=== PATIENT | female | born 1940 | race Caucasian/White ===

== ENCOUNTER 2021-09-23 20:32 | Outpatient (CLI) | payer MEDICARE, BC, SELFPAY ==
--- NOTE | 2021-09-30 12:13 | P.SLS_ITS ---
Sleep Study Details Details Interpreting Provider: Eliud Ramos MD Date of Sleep Study: 09/23/21 Sleep Study Details: STUDY TYPE:? Hospital baseline study ? BMI:? 24.9 ORDERING PROVIDER:? Ana INDICATION:? Concerns about sleep apnea ? SLEEP SUMMARY:? Sleep time 388.5, efficiency 85.4, latency 10.5, REM latency 97, arousal index 14.5 RESPIRATORY SUMMARY:? Mean oxygen awake 96, asleep 95, low oxygen 88. 0.4 minutes oxygen between 80 and 88%. AHI 5.9, RDI 11, REM AHI 9.8. Supine AHI 17.3, supine REM AHI 42.4, Nonsupine AHI 0.9, nonsupine RDI 3.3 PERIODIC LIMB MOVEMENTS OF SLEEP:? Pretreatment 33.7, 0.9 associated with arousal Post treatment 0 CARDIAC:? Awake 57, asleep 54. No arrhythmia noted IMPRESSION:? Mild obstructive sleep apnea with significant supine position and R EM dependency. There was no significant apnea in the lateral position. RECOMMENDATION: AutoSet CPAP at a pressure of 4-17, or a dental appliance may be adequate treatment. Positional therapy could be considered as well.
--- NOTE | 2021-10-07 12:54 | W.PM.SLEEP ---
Sleep Study Details Details Interpreting Provider: Eliud Ramos MD Date of Sleep Study: 09/23/21 Sleep Study Details: STUDY TYPE:? Hospital ? BMI:? 24.9 ORDERING PROVIDER:? Ana INDICATION:? Atrial fibrillation, concerns about sleep apnea ? SLEEP SUMMARY:? Sleep time 388.5, efficiency 85.4, latency 10.5, REM latency 97, arousal index 14.5 RESPIRATORY SUMMARY:? Mean oxygen awake 96, asleep 95, minimum 88, 0.4 minutes oxygen between 80 and 88%. AHI 5.9, supine AHI 17.3, supine REM AHI 42.4. Overall RDI is 11 PERIODIC LIMB MOVEMENTS OF SLEEP:? Index 33.7, index with arousal 0.9 CARDIAC:? Awake 57, asleep 54, no arrhythmias noted. IMPRESSION:? Mild obstructive sleep apnea with supine position and REM dependency RECOMMENDATION: Would recommend trial of AutoSet CPAP pressure 4-17,. A dental appliance could also be considered.
== END 2021-09-23 20:33 | disposition home or self-care (01) ==
LOC: SLEEP 20:33
PROVIDERS: PCP Internal Medicine; Visit Provider Otolaryngology
DX: G47.33 Obstructive sleep apnea (adult) (pediatric) (principal)
CPT/HCPCS: 87635; 95810; A9270

== ENCOUNTER 2021-09-30 07:47 | Outpatient (CLI) | payer MEDICARE, BC, SELFPAY ==
--- NOTE | 2021-09-30 08:00 | CRLHL7_ITS ---
For Patients: As a result of the Century Cures Act, medical imaging exams and procedure reports are released immediately into your electronic medical record. You may view this report before your referring provider. If you have questions, please contact your health care provider. [facility] ??? [facility] MYOCARDIAL PERFUSION SCAN, 09/30/2021 CLINICAL HISTORY: 80-year-old female. Atrial fibrillation. Hypertension. Height 5 feet 2 inches, weight 139 pounds. TECHNIQUE: (Resting SPECT and stress gated SPECT with wall motion and ejection fraction) Stress: Pharmacologic ??? regadenoson (walking protocol, 0.4 mg IV) Dose (Stress/Rest): 32.6 mCi technetium-labeled sestamibi/8.44 mCi technetium-labeled sestamibi (IV) Comparison: None FINDINGS: There is good uptake of activity by the left ventricle. No left ventricular enlargement is noted. End-diastolic volume 42 mL. End-systolic volume 16 mL. There is soft tissue attenuation compatible with breast attenuation artifact. There is mild motion artifact on stress and rest images. There are no significant fixed or reversible defects identified. The gated images demonstrate a normal left ventricular ejection fraction of 62%. No regional wall motion abnormalities are identified. IMPRESSION: 1) No evidence of significant myocardial ischemia or infarction. 2) Normal left ventricular ejection fraction of 62%. This study was jointly reviewed by Radiology and Cardiology. VALENCIA MORALES M.D. Diagnostic/Nuclear Medicine Radiologist [email or web address] Transcribed: 3:08 p.mSteven ADAMS M.D. Department of Cardiology RD/Dictated by: Valencia Morales MD @ 09/30/2021 1:10:00 PM (Electronically Signed)
[2021-09-30] MEDS: SODIUM CHLORIDE 0.9 % (FLUSH) 10 ML SYRINGE IVF (09:27)
[2021-09-30] MEDS: REGADENOSON 0.4 MG/5 ML SYRINGE IVP (09:27)
[2021-09-30 09:28] VITALS: BP 155/75; PULSE 77; RESP 18
--- NOTE | 2021-09-30 17:07 | PM.ST ---
Stress Test Note Date Date Seen: 09/30/21 Date of test: 09/30/21 Providers Primary care provider: Gisela Cotto Stress test physician: Jin Cano Stress Test Note Stress test ordered: Lexiscan Indication for test: Atrial fibrillation with atypical chest pain Stress test medicine: Lexiscan Results discussion: Patient is a very nice 80-year-old female presents for the above test cardiac stress test medical history form is reviewed, she understands this and would like to proceed with the test. After discussion of the risks benefits. Pretest EKG shows normal sinus rhythm, mild bradycardia at [address] No acute ST wave changes are noted. Standard Lexiscan protocol is done for 5 minutes, no dysrhythmias are noted, there is no ST wave changes suggestive of ischemia, and she recovered well. Impression: Negative electrographic portion of Lexiscan Follow up suggested: Await nuclear images which will be read by Cardiology and nuclear Medicine, clinical correlation with this will be needed. Follow-up with primary care
== END 2021-09-30 07:48 | disposition home or self-care (01) ==
PROVIDERS: PCP Internal Medicine; Visit Provider Family Medicine
DX: I48.91 Unspecified atrial fibrillation (principal); I10 Essential (primary) hypertension
CPT/HCPCS: 78452; 93016; 93017; A9500; J2785

== ENCOUNTER 2022-06-29 07:57 | Outpatient (CLI) | payer MEDICARE, BC, SELFPAY | END 2022-06-29 07:58 | disposition home or self-care (01) | LOC: NFLDREF 06-30 08:34 | PROVIDERS: PCP Internal Medicine; Referring Provider Internal Medicine; Visit Provider Internal Medicine | DX: I10 Essential (primary) hypertension (principal); M85.80 Other specified disorders of bone density and structure, unspecified site | CPT/HCPCS: 80048; 82306 ==

== ENCOUNTER 2022-08-17 13:36 | Outpatient (CLI) | payer MEDICARE, BC, SELFPAY ==
--- NOTE | 2022-08-17 13:40 | CRLHL7_ITS ---
For Patients: As a result of the Century Cures Act, medical imaging exams and procedure reports are released immediately into your electronic medical record. You may view this report before your referring provider. If you have questions, please contact your health care provider. BILATERAL SCREENING MAMMOGRAM WITH COMPUTER-AIDED DETECTION AND TOMOSYNTHESIS TECHNIQUE: CC and MLO views were obtained. These mammographic images have been obtained using full-field digital technique. These mammographic images were interpreted with the benefit of computer-aided detection. Breast Tomosynthesis was used in this interpretation. COMPARISON FILM: 08/01/21, 07/31/20, 08/16/19. FINDINGS: The breasts are heterogeneously dense, which may obscure small masses IMPRESSION: There is no radiographic evidence for malignancy. ASSESSMENT: BI-RADS Category 2: Benign RECOMMENDATION: Routine screening mammogram in 1 year. A lay language report of this examination will be provided to the patient. Jaylon Rueda M.D. Diagnostic/Nuclear Medicine Radiologist [email or web address] ZOË/Dictated by: Jaylon Rueda MD @ 08/18/2022 8:12:00 AM (Electronically Signed)
== END 2022-08-17 13:37 | disposition home or self-care (01) ==
PROVIDERS: PCP Internal Medicine; Visit Provider Internal Medicine
DX: Z12.31 Encounter for screening mammogram for malignant neoplasm of breast (principal); R92.2 Inconclusive mammogram
CPT/HCPCS: 77063; 77067

== ENCOUNTER 2023-07-06 08:40 | Outpatient (CLI) | payer MEDICARE, BC, SELFPAY ==
--- OUTSIDE RECORDS SUMMARY | 2023-07-07 08:54 | XMS_ITS | Clinical Summary ---
Author Name Unknown Organization [facility] Address [place], [place] [address] Care Team Providers Care Billposter Name Role Phone Other-None Unavailable Unavailable Casie Benton MD Unavailable [phone] Gisela Cotto MD Primary Care Provider + [phone] Rika Addison Unavailable [phone] Allergies No known active allergies Medications Medication Sig Dispensed Refills Start Date End Date Status MULTIVITAMIN TAB take 1 tablet by oral route once daily with food 0 Active calcium carbonate-vitamin D3, 600 mg-125 unit, (CALCIUM 600 + D) tablet Take 1 tablet by mouth once daily. 0 06/16/2011 Active amLODIPine (NORVASC) 5 mg tabletIndications:HTN (hypertension) Take 1 Tablet (5 mg) by mouth once daily. 90 Tablet 3 10/23/2022 Active apixaban (ELIQUIS) 2.5 mg tabletIndications:Paro xysmal atrial fibrillation (HC) Take 1 Tablet (2.5 mg) by mouth two times daily. 180 Tablet 3 10/23/2022 Active flecainide (TAMBOCOR) 50 mg tabletIndications:PAF (paroxysmal atrial fibrillation) (HC) TAKE 1 TABLET(50 MG) BY MOUTH EVERY 12 HOURS 180 Tablet 3 02/15/2023 Active Active Problems Problem Noted Date Diagnosed Date Adenomatous colon polyp 11/08/2013 Overview: Colonoscopy 10/2013 polyp repeat in 5 years Family history of malignant neoplasm of gastrointestinal tract 09/07/2008 Overview: Colonoscopy 08/2008 normal repeat in 5 years Sensorineural hearing loss, bilateral 07/07/2007 Personal history of malignant neoplasm of breast 03/01/2000 Overview: Lumpectomy and radiation, est. receptor positive OSTEOPENIA Overview: Last Dexa 06/03: L-spine -0.5, Hip -0.5, improved from 04/03 Unspecified essential hypertension Resolved Problems Problem Noted Date Diagnosed Date Resolved Date Unspecified essential hypertension 07/05/2007 07/22/2007 Immunizations Name Administration Dates Next Due AMB Influenza, IIV3 (Age >=3 years)(Flu Clinic Only) 01/07/2011,12/04/2008,01/09/2008 Influenza A (H1N1), Inactiva benita (Age >=3 Years) 03/20/2009 Influenza, IIV3 (Age >=3 years) 11/15/2009 Pneumococcal Poly,23-Valent (Pneumovax) 05/17/19 08 Td (Age >=7 Years) 06/05/2002 Tdap 07/04/2010 Zoster (Zostavax-ZVL, live) 05/17/2007 Family History Medical History Relation Name Comments Good Health Brother Other Father age 33, [address] owning accident Cancer-colon Mother Age 50 Cancer-breast Neg. Diabetes Other grandparents Relation Name Status Comments Brother Father Mother Neg. Other Social History Tobacco Use Types Packs/Day Years Used Date Smoking Tobacco: Never Smokeless Tobacco: Never Alcohol Use Standard Drinks/Week Comments Not Currently 0 (1 standard drink = 0.6 oz pur e alcohol) Social Connections Answer Date Recorded Frequency of Communication with Friends and Fami ly Not on file 09/12/2021 Sex and Gender Information Value Date Recorded Sex Assigned at Not on file Gender Identity Not on file Sexual Orientation Not on file Obstetrics History Para Term AB IAB SAB Ectopic Multiple Livin g Live Births 3 2 1 1 2 Date Outcome GA Total Labor Labor/2nd/3rd Weight Sex Delivery Anes PTL Tara A1 A5 Name Cl in SAB Para Para Last Filed Vital Signs Vital Sign Reading Time Taken Comments Blood Pressure 137/68 10/23/2022 1:52 PM CDT Pulse 55 10/23/2022 1:52 PM CDT Temperature - - Respiratory Rate 14 11/28/2021 12:1 6 PM CDT Oxygen Saturation 99% 10/23/2022 1:52 PM CDT Inhaled Oxygen Concentration - - Weight 60.7 kg (133 lb 14.4 oz) 10/23/2022 1:52 PM CDT Height 157.5 cm (5' 2.01) 10/23/2022 1:52 PM CD T Body Mass Index 24.48 10/23/2022 1:52 PM CDT Plan of Treatment Health Maintenance Due Date Last Done Comments Depression screening for age 12+ 1952 Zoster (shingles) series for age 50+ (2 of 3) 07/12/2007 05/17/2007 Pneumococcal series for age 65+ (2 of 2 - PCV) 05/16/2008 05/17/2007 Medicare Wellness for age 65+ 06/16/2012 06/16/2011 Tetanus booster 07/04/2020 07/04/2010, 06/05/2002 COVID-19 vaccine series () 10/30/2022 07/10/2022, 11/24/2021, 07/11/2021, Additional history exists BMI (ht and wt on same day) for age 18+ 10/24/2023 10/23/2022, 05/22/2022, 10/20/2021 Influenza for age 65+ 10/31/2023 01/07/2011 , 11/15/2009, 03/20/2009, Additional history exists Tdap Completed 07/04/2010 DEXA/DXA scan for age 65+ Completed 2011, 06/18/2009, 05/26/2007 Procedures Procedure Name Priority Date/Time Associated Diagnosis Comments XR DXA BONE DENSITY 2 SITES AXIAL Routine 06/23/2011 2:28 PM CDT Osteopenia from Last 3 Months or Most Recently Relevant to Health Maintenance Results * XR DEXA BONE DENSITY 2 SITES (06/23/2011 2:28 PM CDT) Anatomical Region Laterality Modality Spine, HIPS, HIPL, HIPR Other Narrative 07/01/2011 11:26 AM CDT Please see scanned document for results of this study. Procedure Note Florence Bocanegra PA - 07/01/2011 Please see scanned document for results of this study. 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 06/16/11 Casie Benton MD [address] [facility] [address] [place] [address] Ophthalmology Surgery 06/16/11 Rika Addison AuD [address] [place] [address] Provider Audiology 06/09/07
== END 2023-07-06 08:41 | disposition home or self-care (01) ==
LOC: NFLDREF 07-07 08:50
PROVIDERS: PCP Internal Medicine; Referring Provider Internal Medicine; Visit Provider Internal Medicine
DX: I48.0 Paroxysmal atrial fibrillation (principal); M85.80 Other specified disorders of bone density and structure, unspecified site; Z13.220 Encounter for screening for lipoid disorders
CPT/HCPCS: 80061; 82306

== ENCOUNTER 2023-08-12 09:07 | Outpatient (CLI) | payer MEDICARE, BC, SELFPAY ==
--- NOTE | 2023-08-12 09:15 | CRLHL7_ITS ---
For Patients: As a result of the Century Cures Act, medical imaging exams and procedure reports are released immediately into your electronic medical record. You may view this report before your referring provider. If you have questions, please contact your health care provider. BILATERAL SCREENING MAMMOGRAM WITH COMPUTER-AIDED DETECTION AND TOMOSYNTHESIS TECHNIQUE: CC and MLO views were obtained. These mammographic images have been obtained using full-field digital technique. These mammographic images were interpreted with the benefit of computer-aided detection. Breast Tomosynthesis was used in this interpretation. COMPARISON FILM: 08/17/22, 08/01/21, 07/31/20. FINDINGS: There are scattered areas of fibroglandular density. IMPRESSION: There is no radiographic evidence for malignancy. ASSESSMENT: BI-RADS Category 2: Benign RECOMMENDATION: Routine screening mammogram in 1 year. A lay language report of this examination will be provided to the patient. Roe Luz M.D. Diagnostic Radiologist [email or web address] SP/Dictated by: Roe Luz MD @ 08/16/2023 11:09:00 AM (Electronically Signed)
--- OUTSIDE RECORDS SUMMARY | 2023-08-12 09:15 | XMS_ITS | Clinical Summary ---
Author Organization [facility] Address [place], [place] [address] Care Team Providers Care Controller Instructor Name Role Phone Other-None Unavailable Unavailable Casie Benton MD Unavailable [phone] Gisela Cotto MD Primary Care Provider + [phone] Rika Addison Unavailable [phone] Allergies No known active allergies Medications Medication [...] Outcome GA Total Labor Labor/2nd/3rd Weight Sex Type Anes PTL Tara A1 A5 Name Clin SAB Para Para Last Filed Vital Signs [...] 10/23/2022 1:52 PM CDT Plan of Treatment Upcoming Encounters Date Type Department Care Team (Late st Contact Info) Description 08/31/2023 11:30 AM CDT Office Visit [facility] [address] [place] [address] Roe Mireles MD [address] [facility] [address] [place], [place] [id number] Health Maintenance Due Date Last Done Comments Depression screening for age 12+ 1952 Zoster (shingles) series for age 50+ (2 of 3) 07/12/2007 05/17/2007 Pneumococcal series for age 65+ (2 of 2 - PCV) 05/16/2008 05/17/2007 Medicare Wellness for age 65+ 06/16/2012 06/16/2011 Tetanus booster 07/04/2020 07/04/2010, 06/05/2002 COVID-19 vaccine series ( season) 2022 07/10/2022, 11/24/2021, 07/11/2021, Additional history exists BMI [...] document for results of this study. 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 06/16/11 Casie Benton MD [address] [address] Ophthalmology Surgery 06/16/11 Rika Addison AuD [address] [place] [address] Provider Audiology 06/09/07
== END 2023-08-12 09:08 | disposition home or self-care (01) ==
LOC: MAMMO 09:07
PROVIDERS: PCP Internal Medicine; Visit Provider Internal Medicine
DX: Z12.31 Encounter for screening mammogram for malignant neoplasm of breast (principal)
CPT/HCPCS: 77063; 77067

== ENCOUNTER 2023-08-17 13:00 | Outpatient (RCR) | payer MEDICARE, BC, SELFPAY ==
--- NOTE | 2023-07-28 12:37 | PT.OPEX ---
PT [place] Outpatient Eval PT [facility] Outpatient Eval Start: 07/28/23 08:02 Freq: Status: Active Protocol: Document 07/28/23 08:03 MARCIO (Rec: 07/28/23 10:19 MARCIO [id number]) E-signed By Belkis Ballesteros, PT Physical Therapy Outpatient Evaluation Insurance Information Recert Due Date 10/26/23 Insurance Name Medicare B,Blue Cross/Blue Shield Medical Diagnosis Female urinary incontinence, pelvic pain Referring Gisela Arriaga Subjective Subjective She leaks small amount of urine when getting up from couch after prolonged reading. She gets occasional leakage with getting up out of bed. She has insomnia- either difficult to get to sleep or has a wake window in the night . If she is able to get into a deep sleep, she is able to go over 6 hours without voiding in the night. She exercises in the day to assist with fatiguing body. Sometimes drinks warm milk to assist with falling asleep. Awhile ago had some fecal leakage c delaying defecation. This was with loose stools- correlates with diet. She had a small amount of stool in underpants. Has urinary leakage with climax, has not tolerated vaginal penetration for 6-7 years d/t pain. 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 HRT ended p lumpectomy. Breast CA in 2000. Mother had colon CA. Hs tightness bilat Breathing: chest/neck breathing Pressure management: [place]: mild separation TA strength: fair, RA preference LUMBAR ROM Flexion: limited 50% repeated flexion: no pain Extension: limited 25% repeated ext: no pain Right Sidebend: not limited Left Sidebend: not limited LE MMT Hip Extension: R 4-/5 L 4-/5 Hip abduction: R 4/5 L 4/5 JOINT MOBILITY/PALPATION SPECIAL TESTS Straight leg raise: neg Crossed straight leg raise: + sciatic tension Slump test: + bilat Quadrant test: neg SI/HIP tests AYANNA + bilat at lateral hip FADIR - B SCOUR - B Gillet Test: - Standing forward bend Test: - B Functional Test Performed & Score PMH: breast cancer c lumpectomy, A-fib, depression Assessment Assessment/Impression Pt is an 82 yr old female c a h/o intermittent fecal and urinary incontinence. She also reports tension in pelvic floor that results in leakage with climaxing. She has lessened energy in past 2 years and reports fatigue much more limiting than prior as well as insomnia- which results in more frequent nocturia. She is active and motivated. She does have hypertonicity of adductors, which can have carryover into Pelvic floor mm tension. She does have somes s/s of pelvic floor hypertonicity. Primary Functional Limitations occassional bladder and fecal leakage, quick fatigue. Plan of Care Rehabilitation Potential Good Physical Therapy Goals Pt will report improved bladder continence c 50% reduction in leaks in 12 weeks . Pt will demonstrate indep in HEP to progress gains made in therapy in 8 weeks. Pt will be indep c diaphragmatic breathing to improve flexibility of pelvic floor, improve rest for sleep, and improve deep core connection in 4 weeks. Coordination/Communication With Referral Source Treatment Plan/Direct Interventions Manual Therapy,Neuromuscular Re-ed,Self-Care/Home Management,Therapeutic Activities,Therapeutic Exercises Frequency/Duration weekly for 12 weeks. Patient Will Be Discharged From Therapy Completion of LTG(s),Skills Plateau,Independent w/HEP, Independently Progressing Evaluation Billing Untimed Code Treatment Minutes 45 PT Eval No Charge No Complexity Low Certification Information Initial Certification Date 07/28/23 Ending Certification Date 10/26/23 Physician Comment/Change : Physician NPI Number #
== END 2023-09-27 13:13 | disposition home or self-care (01) ==
PROVIDERS: PCP Internal Medicine; Visit Provider Internal Medicine
DX: N39.3 Stress incontinence (female) (male) (principal); R10.2 Pelvic and perineal pain; Z51.89 Encounter for other specified aftercare
CPT/HCPCS: 97110; 97140; 97161

== ENCOUNTER 2024-01-08 16:17 | Emergency (ER) | payer MEDICARE, BC, SELFPAY ==
[2024-01-08] VITALS (9 sets, daily range): BP systolic 120–150; BP diastolic 65–78; PULSE 40–68; RESP 18; TEMP 36.8; O2SAT 86–100; BMI 26.1
--- NOTE | 2024-01-08 17:15 | CRLHL7_ITS ---
For Patients: As a result of the Cures Act, medical imaging exams and procedure reports are released immediately into your electronic medical record. You may view this report before your referring provider. If you have questions, please contact your health care provider. INDICATION: : Shortness of breath COMPARISON: Chest radiograph on August 13, 2021 TECHNIQUE: Two view(s) of the chest FINDINGS: The cardiomediastinal silhouette and pulmonary vasculature are unremarkable. There is no focal airspace consolidation, pleural effusion, or pneumothorax. No displaced fractures. IMPRESSION: No acute cardiopulmonary process. Dictated by William Flores MD @ 01/08/2024 5:45:37 PM (Electronically Signed)
--- OUTSIDE RECORDS SUMMARY | 2024-01-08 17:22 | XMS_ITS | Clinical Summary ---
Author Organization [facility] Address [place], [place] [address] Care Team Providers Care Hooker Off Name Role Phone Other-None Unavailable Unavailable Casie Benton MD Unavailable [phone] Gisela Cotto MD Primary Care Provider [phone] Rika Kang Angie Unavailable [phone] Allergies No known active allergies Medications Medication Sig Dispensed Refills Start Date End Date Status MULTIVITAMIN TAB take 1 tablet by oral route once daily with food 0 Active calcium carbonate-vitamin D3, 600 mg-125 unit, (CALCIUM 600 + D) tablet Take 1 tablet by mouth once daily. 0 06/16/2011 Active flecainide (TAMBOCOR) 50 mg tabletIndications:PAF (paroxysmal atrial fibrillation) (HC) Take 1 Tablet (50 mg) by mouth every 12 hours. 180 Tablet 3 08/31/2023 Active apixaban (ELIQUIS) 2.5 mg tabletIndications:Paro xysmal atrial fibrillation (HC) Take 1 Tablet (2.5 mg) by mouth two times daily. 180 Tablet 3 08/31/2023 Active amLODIPine (NORVASC) 5 mg tabletIndications:HTN (hypertension) Take 1 Tablet (5 mg) by mouth once daily. 90 Tablet 3 08/31/2023 Active Active Problems Problem Noted Date Diagnosed Date Adenomatous colon polyp 11/08/2013 Overview (11/08/2013): Colonoscopy 10/2013 polyp repeat in 5 years Family history of malignant neoplasm of gastrointestinal tract 09/07/2008 Overview (09/07/2008): Colonoscopy 08/2008 normal repeat in 5 years Sensorineural hearing loss, bilateral 07/07/2007 Personal history of malignant neoplasm of breast 03/01/2000 Overview (06/29/2006): Lumpectomy and radiation, est. receptor positive OSTEOPENIA Overview (06/29/2006): Last Dexa 06/03: L-spine -0.5, Hip -0.5, improved from 04/03 Unspecified essential hypertension Resolved Problems Problem Noted Date Diagnosed Date Resolved Date Unspecified essential hypertension 07/05/2007 07/22/2007 Encounters Date Type Department Care Team Description 11/15/2023 Refill [facility] [address] [place] [address] Roe Mireles MD Refill Request (Eliquis) from Last 3 Months Immunizations Name Administration Dates Next Due AMB [...] Date Smoking Tobacco: Never Smokeless Tobacco: Never Tobacco Cessation:Counseling Given: Yes Alcohol Use Standard Drinks/Week Comments Not Currently [...] Sign Reading Time Taken Comments Blood Pressure 150/69 08/31/2023 11:27 AM CDT Pulse 52 08/31/2023 11:27 AM CDT Temperature - - Respiratory Rate 14 11/28/2021 12:16 PM CDT Oxygen Saturation 99% 08/31/2023 11:27 AM CDT Inhaled Oxygen Concentration - - Weight 62.1 kg (137 lb) 08/31/2023 11:27 AM CDT Height 157.5 cm (5' 2.01) 10/23/2022 1:52 PM CD T Body Mass Index 25.05 10/23/2022 1:52 PM CDT Plan of Treatment Health Maintenance Due Date Last Done Comments Depression screening for age 12+ 1952 Zoster (shingles) series for age 50+ (2 of 3) 07/12/2007 05/17/2007 Pneumococcal series for age 65+ (2 of 2 - PCV) 05/16/2008 05/17/2007 Medicare Wellness for age 65+ 06/16/2012 06/16/2011 RSV vaccine for adults or (1 - 1-dose 75+ series) 2016 Tetanus booster 07/04/2020 07/04/2010, 06/05/2002 BMI (ht and wt on same day) for age 18+ 10/24/2023 10/23/2022, 05/22/2022, 10/20/2021 COVID-19 vaccine series ( season) 2023 12/03/2022, 07/10/2022, 11/24/2021, Additional history exists Influenza for age 65+ 10/31/2023 01/07/2011 , [...] Documents on File Type Date Recorded Patient Residency Director Expl anation Healthcare Directive 03/17/2007 HEALTH CARE DIRECTIVE/[employer], [facility], 03/17/07 Care Teams Hooker Off Relationship Specialty Start Date End Date Gisela Cotto MD [address] [place] [address] PCP - General Internal Medicine 12/22/11 Other-None . 06/16/11 Casie Benton MD [address] [address] Ophthalmology Surgery 06/16/11 Rika Kang AuD [address] [place] [address] Provider Audiology 06/09/07
[2024-01-08 17:29] LABS: Hematocrit 38.9 % (33.0-51.0); Hemoglobin* 12.6 gm/dL (12.0-16.0); Lymphocytes Percent Auto 22.3 % (20-44); Mean Corpuscular HGB Conc 32 gm/dL (32-36); Mean Corpuscular Hemoglobin 27 pg (26-34); Mean Corpuscular Volume 84 fL (80-100); Monocytes Percent Auto 13.1 % (0.0-11.0); Neutrophils Percent Auto 62.4 % (42.0-72.0); Platelet Count* 173 K/uL (140-440); RDW Coefficient of Variation % 14.7 % (11.5-15.5); Red Blood Count 4.63 m/uL (4.00-5.20); White Blood Count* 5.48 K/uL (4.50-11.00)
[2024-01-08 17:30] LABS: Basophils Absolute Auto 0.01 K/uL (0.00-0.30); Basophils Percent Auto 0.2 % (0.0-3.0); Eosinophils Percent Auto 1.8 % (0.0-7.0); Immature Granulocytes Abs Auto 0.01 K/uL (0.00-0.30); Immature Granulocytes Pct Auto 0.2 %; Lymphocytes Absolute Auto 1.22 K/uL (0.90-2.90); Neutrophils Absolute Auto 3.42 K/uL (1.7-7.0)
[2024-01-08 17:31] LABS: Lactate* 1.5 mmol/L (0.5-1.9)
[2024-01-08 17:35] LABS: Slide Review Reflex No
[2024-01-08 17:47] LABS: Mono Screen* Negative (Negative)
--- NOTE | 2024-01-08 17:58 | ED_ITS ---
HPI - General Adult General Chief complaint: Unspecified Complaint, Adult Stated complaint: High BP Time Seen by Provider: 01/08/24 17:02 Source: patient Mode of arrival: ambulatory Limitations: no limitations History of Present Illness HPI narrative: 83-year-old female coming in today complaining of not feeling well. She states she woke up this morning around 7:00 a.m. and did not feel well she states that her head was ?swimming?. She states that the room was moving spinning around her. She felt clammy when this was occurring. She denies feeling short of breath or chest pain. She did not have a headache. She denies any blurry vision ringing in her ears. She states that she laid back down for a while and started to feel better. She then got up and had her friend check her blood pressure and it was ?99: She subsequently had a large bowel movement in all of her symptoms resolved. She was in [place] this morning when this occurred. She decided that she was feeling good enough to come home. So they went to the [facility] in waited further over. She was able to get around the airport. She states that now she feels very tired and she feels a heaviness from the waist up. She denies any focal neurologic deficits. She denies any weakness of any extremity, clumsiness, changes in her speech, confusion or headache. She states that she is getting checked out because a friend who is a medical professional asked her to. She denies any nausea or vomiting. It has been approximately 11 hours since the episode occurred. Patient has history of paroxysmal atrial fibrillation. She is on Eliquis, flecainide and amlodipine. Takes her medications as prescribed. Related Data Home Medications ?Medication ?Instructions ?Recorded ?Confirmed calcium 600 mg (as 1 tab PO DAILY 09/12/21 07/12/23 carbonate)-vitamin D3 5 mcg (200 unit) tablet multivitamin (Multiple Vitamins 1 tab PO QDAY 09/12/21 07/12/23 tablet) metoprolol tartrate 25 mg tablet 25 mg PO QDAY PRN 11/07/21 07/12/23 amlodipine 5 mg tablet 5 mg PO QDAY 11/25/21 07/12/23 flecainide 50 mg tablet 50 mg PO Q12H 07/09/22 07/12/23 apixaban 2.5 mg tablet (Eliquis) 2.5 mg PO BID 11/09/22 07/12/23 Allergies Allergy/AdvReac Type Severity Reaction Status Date / Time No Known Allergies Allergy Verified 07/12/23 12:45 Review of Systems Status of ROS: Reports: 10 or more systems reviewed and unremarkable except as noted in History and below PFSH PFSH Surgical History History of cataract surgery ?Z98.49 - Cataract extraction status, unspecified eye (ICD-10) History of tubal ligation (12/02/11) ?Z98.51 - Tubal ligation status (ICD-10) Family History Mother Colon cancer, Onset Age: 50 Social History Narrative: health care directive on file- Health care directive completed on 06/09/2019 reviewed and sent to be scanned on 06/29/2019 What is your current living situation?: I presently have a place to live Problems where you live: no known problems In the past 12 months, utilities in danger of being shut off: no In past 12 months, lack of transportation kept you from medical appts, meetings, work, or getting things needed for daily living: no In the past 12 mos, have been you worried that your food would run out before you had money to buy more?: never true In the past 12 mos, the food you bought just didn't last and you didn't have money to buy more?: never true Smoking Status: Never smoker How often does anyone, including family, friends and others, physically hurt you : never How often does anyone, including family, friends and others, insult or talk down to you: never How often does anyone, including family, friends and others, threaten you with harm: never How often does anyone, including family, friends and others, scream or curse at you: never Little interest or pleasure in doing things: not at all Feeling down, depressed, or hopeless: not at all Exam Narrative: Exam Narrative: Well-nourished well-developed patient in no acute distress. Alert and oriented. Answers questions appropriately. Mood and affect are appropriate. Thoughts are goal oriented and rational. No tangential or magical thinking noted. Patient speaks in full sentences without needing to catch her breath. HEENT: Normocephalic atraumatic. Pupils are equally round reactive to light. Extraocular muscles are intact. Conjunctivae are moist without any icterus noted. Moist mucous membranes. Posterior pharynx is normal. Neck is soft without any lymphadenopathy or thyromegaly. No masses are appreciated. Cardiovascular: Heart is bradycardic and regular rhythm S1 and S2 are present without any murmurs. Lungs: Clear to auscultation bilaterally no wheezes rhonchi or rales are appreciated. Patient takes deep breaths without any discomfort. Abdomen: Soft and nontender nondistended with normal bowel sounds. No guarding or rebound. Extremities: Bilateral lower extremities are without edema. Skin: Well perfused without any obvious rashes. Strength is 5/5 of the upper and lower extremities. Reflexes are 2+ and symmetric at the knees. Cranial nerves 3-12 are normal. Illtkp-yd-rraj is normal. Elcu-sc-ophc is normal. There is no nystagmus either horizontally or vertically. Gait is normal. Const: Vital Signs, click to edit/add: Vital Signs - 24 hr 01/08/24 16:28 Temperature 98.2 F Pulse Rate [Pulse Oximeter] 68 Respiratory Rate 18 Blood Pressure [Le ft Upper Arm] 150/65 H Pulse Oximetry 98 Oxygen Delivery Me thod Room Air Course Course ED Course: EKG, read by me, shows sinus bradycardia with a pulse of 51. CBC is unremarkable. Normal lactate. Triple swab is negative. Chemistries are unremarkable, BUN is slightly elevated at 37. Normal LFTs. Normal troponin. Normal CRP. UA does show 1+ leukocyte esterase and 5-10 wbc's. Patient is not having any obvious UTI symptoms. Because of this we will wait for cultures and if the cult ures are positive I do recommend treatment with antibiotics. Vital Signs Vital signs: Initial Vital Signs Temperature 98.2 F 01/08/24 16:28 Temperature Source Temporal Artery Scan 01/08/24 16:28 Pulse Rate 68 01/08/24 16:28 Pulse Rhythm Regular 01/08/24 16:28 Respiratory Rate 18 01/08/24 16:28 Blood Pressure 150/65 H 01/08/24 16: Blood Pressure Mean 93 01/08/24 16:28 Blood Pressure Position Sitting 01/08/24 16:28 Pulse Oximetry 98 01/08/24 16:28 Oxygen Delivery Method Room Air 01/08/24 16:28 Vital Signs Temperature 98.2 F 01/08/24 16:28 Pulse Rate 68 01/08/24 16:28 Respiratory Rate 18 01/08/24 16:28 Blood Pressure 150/65 H 01/08/24 16:28 Pulse Oximetry 98 01/08/24 16:28 Oxygen Delivery Method Room Air 01/08/24 16:28 Temperature 98.2 F 01/08/24 16:28 Pulse Rate 68 01/08/24 16:28 Respiratory Rate 18 01/08/24 16:28 Blood Pressure 150/65 H 01/08/24 16:28 Pulse Oximetry 98 01/08/24 16:28 Oxygen Delivery Method Room Air 01/08/24 16:28 Medical Decision Making MDM Narrative Medical decision making narrative: 83-year-old female with an episode of dizziness and low blood pressure this morning, now resolved. No evidence of stroke-like symptoms or acute coronary syndrome. Recommend hydration, rest and follow-up as needed. Return to ER if symptoms return. Lab Data Lab results reviewed: Yes I reviewed the patient's lab results Labs: Lab Results 01/08/24 01/08/24 01/08/24 Range/Units 17:20 17:23 18:40 WBC 5.48 (4.50-11.00) K/uL RBC 4.63 (4.00-5.20) m/uL Hgb 12.6 (12.0-16.0) gm/dL Hct 38.9 (33.0-51.0) % MCV 84 (80-100) fL MCH 27 (26-34) pg MCHC 32 (32-36) gm/dL RDW Coeff of Miguel 14.7 (11.5-15.5) % Plt Count 173 (140-440) K/uL Neut % (Auto) 62.4 (42.0-72.0) % Lymph % (Auto) 22.3 (20-44) % [place] % (Auto) 13.1 H (0.0-11.0) % Eos % (Auto) 1.8 (0.0-7.0) % Baso % (Auto) 0.2 (0.0-3.0) % Neut # (Auto) 3.42 (1.7-7.0) K/uL Lymph # (Auto) 1.22 (0.90-2.90) K/uL [place] # (Auto) 0.70 (0.00-0.90) K/UL Eos # (Auto) 0.10 (0.00-0.50) K/uL Baso # (Auto) 0.01 (0.00-0.30) K/uL Abs Immat Gran (auto) 0.01 (0.00-0.30) K/uL Imm/Tot Granulo (auto) 0.2 % Sodium 137 (135-149) mmol/L Potassium 4.2 (3.6-5.1) mmol/L Chloride 101 (96-114) mmol/L Carbon Dioxide 28 (20-32) mmol/L Anion Gap 8 (7-15) mEq/L BUN 37 H (7-30) mg/dL Creatinine 0.8 (0.5-1.5) mg/dL Estimated Creat Clear 32.73 Estimated GFR 74 ml/min Glucose 107 (60-115) mg/dL Lactate 1.5 (0.5-1.9) mmol/L Calcium 9.2 (8.4-10.6) mg/dL Total Bilirubin 0.2 (0.1-1.5) mg/dL Direct Bilirubin 0.1 (0.0-0.5) mg/dL AST 22 (12-35) U/L ALT 18 (4-35) U/L Alkaline Phosphatase 89 (40-150) U/L Troponin I < 0.01 L (0.01-0.04) ng/mL C-Reactive Protein < 0.5 L (0.5-1.0) mg/dL Total Protein 6.8 (6.0-8.3) g/dL Albumin 4.2 (3.3-5.0) g/dL Urine Color Yellow (Yellow) Urine Appearance Clear (Clear) Urine pH 6.0 (5.0-8.5) Ur Specific [place] 1.025 (1.000-1.030) Urine Protein Trace A (Negative) Urine Glucose (UA) Negative (Negative) Urine Ketones Negative (Negative) Urine Blood Negative (Negative) Urine Nitrite Negative (Negative) Urine Bilirubin Negative (Negative) Urine Urobilinogen 0.2 (0.2-1.0) Ur Leukocyte Esterase 1+ A (Negative) Urine RBC 0-2 (0-2) Urine WBC 5-10 A (0-5) Ur Squamous Epith Cells Few (None-Few) Amorphous Sediment Few A (None) Urine Bacteria Moderate A (None) Urine Mucus Few A (None) SARS-CoV-2 (PCR) Negative SARS-CoV-2 (Negative) Monoscreen Negative (Negative) Influenza Type A (PCR) Negative PCR FLU A (Negative) Influenza Type B (PCR) Negative PCR FLU B (Negative) RSV (PCR) Negative PCR RSV (Negative) Imaging Data Chest x-ray: Attestation: I have reviewed the pertinent imaging results. Radiologist's impression: Two view(s) of the chest FINDINGS: The cardiomediastinal silhouette and pulmonary vasculature are unremarkable. There is no focal airspace consolidation, pleural effusion, or pneumothorax. No displaced fractures. IMPRESSION: No acute cardiopulmonary process. ECG Data Attestation: I personally reviewed and interpreted this ECG as follows: Discharge Plan Discharge Clinical Impression: Dizziness, Low blood pressure reading Additional Instructions: Stay well hydrated, get plenty of rest. If symptoms return return to the ER. Otherwise, you can follow up with your primary care provider this coming week. Prescriptions: No Action amlodipine 5 mg tablet 5 mg PO QDAY calcium carbonate-vitamin D3 600 mg-5 mcg (200 unit) tablet 1 tab PO DAILY multivitamin [Multiple Vitamins] Tablet 1 tab PO QDAY metoprolol tartrate 25 mg tablet 25 mg PO QDAY PRN flecainide 50 mg tablet 50 mg PO Q12H Eliquis 2.5 mg tablet 2.5 mg PO BID Follow Up/Referrals: Gisela Cotto MD [Primary Care Provider] - Stand Alone Forms: [employer] Info Instructions
[2024-01-08 18:16] LABS: Albumin* 4.2 g/dL (3.3-5.0); Chloride* 101 mmol/L (96-114); Sodium* 137 mmol/L (135-149)
[2024-01-08 18:17] LABS: Potassium* 4.2 mmol/L (3.6-5.1)
[2024-01-08 18:18] LABS: Creatinine* 0.8 mg/dL (0.5-1.5); Est. Creatinine Clearance* 32.73; Estimated Glomerular Filt Rate 74 ml/min
[2024-01-08 18:19] LABS: Alkaline Phosphatase* 89 U/L (40-150); Anion Gap 8 mEq/L (7-15); Aspartate Amino Transferase* 22 U/L (12-35); Bilirubin Direct* 0.1 mg/dL (0.0-0.5); Bilirubin Total* 0.2 mg/dL (0.1-1.5); Carbon Dioxide* 28 mmol/L (20-32); Total Protein* 6.8 g/dL (6.0-8.3)
[2024-01-08 18:20] LABS: Alanine Aminotransferase* 18 U/L (4-35); Blood Urea Nitrogen* 37 mg/dL (7-30); Calcium* 9.2 mg/dL (8.4-10.6); Glucose* 107 mg/dL (60-115)
[2024-01-08 18:28] LABS: PCR FLU A Negative PCR FLU A (Negative); PCR FLU B Negative PCR FLU B (Negative); PCR RSV Negative PCR RSV (Negative); SARS PCR* Negative SARS-CoV-2 (Negative)
[2024-01-08 18:38] LABS: C Reactive Protein* < 0.5 mg/dL (0.5-1.0); Troponin I* < 0.01 ng/mL (0.01-0.04)
[2024-01-08 18:54] LABS: Appearance Urine Clear (Clear); Bilirubin Urine Negative (Negative); Blood Urine Negative (Negative); Color Urine Yellow (Yellow); Glucose Urine Negative (Negative); Ketones Urine Negative (Negative); Leukocyte Esterase Urine 1+ (Negative); Nitrite Urine Negative (Negative); Protein Urine Trace (Negative); Specific Gravity Urine 1.025 (1.000-1.030); Urobilinogen Urine 0.2 (0.2-1.0)
[2024-01-08 19:14] LABS: Amorphous Sediment Urine Few; Bacteria Urine Moderate; Mucus Urine Few; RBC Urine 0-2 (0-2); Squamous Epithelial Cell Urine Few (None-Few)
== END 2024-01-08 19:36 | disposition home or self-care (01) ==
PROVIDERS: Emergency Provider Family Medicine; PCP Internal Medicine
DX: R42 Dizziness and giddiness (principal); I95.9 Hypotension, unspecified
CPT/HCPCS: 36415; 71046; 80048; 80076; 81001; 83605; 84484; 85025; 86140; 86308; 87086; 87631; 93005; 94761; 99284

== ENCOUNTER 2024-07-10 09:40 | Outpatient (CLI) | payer MEDICARE, BC, SELFPAY | END 2024-07-10 09:41 | disposition home or self-care (01) | LOC: NFLDREF 07-18 07:48 | PROVIDERS: PCP Internal Medicine; Referring Provider Internal Medicine; Visit Provider Internal Medicine | DX: M85.80 Other specified disorders of bone density and structure, unspecified site (principal) | CPT/HCPCS: 82306 ==

== ENCOUNTER 2024-08-07 09:06 | Outpatient (CLI) | payer MEDICARE, BC, SELFPAY ==
--- NOTE | 2024-08-07 09:15 | CRLHL7_ITS ---
For Patients: As a result of the Century Cures Act, medical imaging exams and procedure reports are released immediately into your electronic medical record. You may view this report before your referring provider. If you have questions, please contact your health care provider. INDICATION: BILATERAL SCREENING MAMMOGRAM, ASYMPTOMATIC 83 Y/O FEMALE COMPARISON: 08/12/2023, 08/17/2022, 08/01/2021 TECHNIQUE: Digital mammogram in CC and MLO projections including computer-aided detection (CAD) and tomosynthesis. BREAST COMPOSITION: The breasts are heterogeneously dense, which may obscure small masses. FINDINGS: No suspicious findings. ASSESSMENT: BI-RADS 2 Benign RECOMMENDATION: Annual screening mammogram. A lay language report of this examination will be provided to the patient. Dictated by: Roe Luz MD @ 08/10/2024 10:26:19 (Electronically Signed)
== END 2024-08-07 09:07 | disposition home or self-care (01) ==
LOC: MAMMO 09:06
PROVIDERS: PCP Internal Medicine; Visit Provider Internal Medicine
DX: Z12.31 Encounter for screening mammogram for malignant neoplasm of breast (principal); R92.333 Mammographic heterogeneous density, bilateral breasts; M85.89 Other specified disorders of bone density and structure, multiple sites; M85.80 Other specified disorders of bone density and structure, unspecified site
CPT/HCPCS: 77063; 77067

== ENCOUNTER 2024-08-09 13:12 | Outpatient (CLI) | payer MEDICARE, BC, SELFPAY ==
--- NOTE | 2024-08-09 13:30 | CRLHL7_ITS ---
For Patients: As a result of the Century Cures Act, medical imaging exams and procedure reports are released immediately into your electronic medical record. You may view this report before your referring provider. If you have questions, please contact your health care provider. DXA BONE MINERAL DENSITY STUDY Current height (in): 51.5. Weight (lb): 136. Menopause age: 50. Ethnicity: White. 1. Have you had a previous hip or vertebral fracture? No. 2. Have you had any fractures during your adult life which did not result from significant trauma (e.g., auto accident)? No. 3. Did either of your parents have a hip fracture? No. 4. Do you smoke? No. 5. Have you ever taken Glucocorticoids? No. 6. Do you have rheumatoid arthritis? No. 7. Do you have secondary osteoporosis? No. 8. Do you drink 3 or more alcoholic drinks per day? No. 9. Are you being treated for osteoporosis? No. 10. Have you ever taken any of the following medications: Actonel, Evista, Fosamax, Miacalcin, Reclast, Boniva, Forteo, HRT (i.e. estrogen/hormone therapy), Protelos, Prolia, Vitamin D, Calcium, other ??? please specify. ANSWER: Yes, Fosamax, HRT, and Calcium. 11. Do you have any of the following medical conditions: Anorexia or bulimia, asthma or emphysema, end stage renal disease, hyperparathyroidism, any seizure disorders, cancer, inflammatory bowel diseases, hysterectomy, other ??? please specify. ANSWER: No. 12. What was your maximum height (inches)? 63. 13. Do you perform weight bearing exercise regularly? Yes. 14. Do you regularly consume dairy products? Yes. 15. Do you drink caffeinated beverages? Yes. 16. At what age did your period start? 14. 17. Are you premenopausal? No. 18. How many full term pregnancies have you had? 2. 19. Have you ever missed your period for more than 6 months in a row (not including or menopause)? No. TECHNIQUE: Bone mineral density study was performed using the [employer]. FINDINGS: The results of the study expressed as bone mineral density (BMD) are as follows: Lumbar spine L1 to L4 (L3) : BMD: 0.958 g/cm2. T-score: -0.7. Z-score: 2.1. Neck Left: BMD: 0.648 g/cm2. T-score: -1.8. Z-score: 0.6. Right: BMD: 0.640 g/cm2. T-score: -1.9. Z-score: 0.5. Total Left: BMD: 0.828 g/cm2. T-score: -0.9. Z-score: 1.3. Right: BMD: 0.829 g/cm2. T-score: -0.9. Z-score: 1.3. IMPRESSION: Osteopenia. COMPARISON: Compared with scan of 09/06/2019, the bone mineral density has increased by 8.6 percent at the spine and decreased by 0.1 percent at the hip. Compared with scan of 08/13/2014, the bone mineral density has decreased by 8.6 percent at the spine and increased by 1.8 percent at the hip. FRAX 10-year Fracture Risk Major Osteoporotic Fracture: 14 percent Hip Fracture: 3.8 percent Reported Risk Factors: [place] () Neck BMD=0.640, BMI=36.1. Reo Luz M.D. Diagnostic Radiologist [email or web address] DW/Dictated by: Roe Luz MD @ 08/11/2024 10:44:00 AM (Electronically Signed)
== END 2024-08-09 13:13 | disposition home or self-care (01) ==
LOC: RAD 13:14
PROVIDERS: PCP Internal Medicine; Visit Provider Internal Medicine
DX: M85.88 Other specified disorders of bone density and structure, other site (principal); I48.91 Unspecified atrial fibrillation; I34.0 Nonrheumatic mitral (valve) insufficiency; I07.1 Rheumatic tricuspid insufficiency
CPT/HCPCS: 77080; 93306

== ENCOUNTER 2024-08-24 09:46 | Outpatient (CLI) | payer MEDICARE, BC, SELFPAY | END 2024-08-24 09:47 | disposition home or self-care (01) | LOC: NFLDREF 08-28 11:34 | PROVIDERS: PCP Internal Medicine; Referring Provider Internal Medicine; Visit Provider Internal Medicine Cardiovascular Disease | DX: I10 Essential (primary) hypertension (principal); I48.91 Unspecified atrial fibrillation | CPT/HCPCS: 80048 ==